=== PATIENT | male | born 1990 | race Caucasian/White ===

== ENCOUNTER → 2018-12-26 | Outpatient (CLI) | payer BC ==
--- NOTE | 2018-12-26 14:50 | CT ---
EXAMINATION TYPE: CT sinus wo con DATE OF EXAM: 12/26/2018 COMPARISON: NONE HISTORY: Pt had MRSA infection in nose September 2017. C/o scabbing, burning, congestion & pain and state s there is a hole in the septum. Chronic sinusitis and septal perforation or order. CT DLP: 581.40 mGycm. Automated Exposure Control for Dose Reduction was Utilized. TECHNIQUE: CT scan of the sinuses is performed without contrast, axial images are obtained, coronal r eformatted images are also reviewed. FINDINGS: There is mild to moderate lobulated mucosal thickening about the inferior aspect of both ma xillary sinuses. Remainder paranasal sinuses are clear without suspicious opacification or air-fluid levels. There is mucosal thickening at maxillary antral level bilaterally causing narrowing on the ri ght coronal image 17 and occlusion on the left coronal image 18. Visualized portion of mastoid air cells show no abnormal opacification. The globes are intact bilate rally. IMPRESSION: Chronic maxillary sinus disease bilaterally. No acute sinusitis.
== END | disposition home or self-care (01) ==
LOC: RADCTMAIN 14:14
PROVIDERS: ATTEND Otolaryngology
DX: J32.0 Chronic maxillary sinusitis (principal); J34.89 Other specified disorders of nose and nasal sinuses
CPT/HCPCS: 70486

== ENCOUNTER 2019-08-16 00:54 | Emergency (ER) | payer BC, OTHER ==
[2019-08-16 01:14] VITALS: BP 131/107; PULSE 96; RESP 16; TEMP 97.6
[2019-08-16] MEDS ORDERED: AMOXIC-POT CLAV 875-125MG 1 EACH TAB PO STA (01:47)
[2019-08-16] MEDS ORDERED: AMPICILLIN-SULBACTAM 3 GM VIAL IM STA (01:47)
[2019-08-16] MEDS ORDERED: AMOXIC-POT CLAV 875MG STARTER 2 EACH TABLET PO STA (01:47)
--- NOTE | 2019-08-16 01:49 | ED ---
Animal Bite HPI - General Chief Complaint: Animal Bite Stated Complaint: Hand Swelling/Redness Time Seen by Provider: 08/16/19 01:17 Source: patient, RN notes reviewed, old records reviewed Mode of arrival: ambulatory Limitations: no limitations - History of Present Illness Initial Comments: This is a 29-year-old male present with dogbite of right extremity. Symptoms happened 2 days ago, no prior evaluations. Minimal swelling of that right extremity currently. Patient refusing hospital admission effusing ambulatory, patient states he does have significant amount of things to do heel return if symptoms worsen. Patient has no fever but some swelling locally to the area of the puncture wound. Puncture wound appears to be around his index finger. No other injuries noted. No lymphadenopathy in the upper arm and no streaking up the arm MD Complaint: animal bite (Dog) -: days(s) (2) Left: Hand Animal: dog Description: household pet Mechanism: bite Pain Description: sharp Severity scale (1-10): 3 Associated Symptoms: erythema - Related Data Previous Rx's Medication Instructions Recorded Amoxic-Pot Clav 875-125Mg 1 tab PO Q12HR #20 tablet 08/16/19 [Augmentin 875-125] Allergies Allergy/AdvReac Type Severity Reaction Status Date / Time No Known Allergies Allergy Verified 08/16/19 01:14 Review of Systems ROS Statement: Those systems with pertinent positive or pertinent negative responses have been documented in the HPI. ROS Other: All systems not noted in ROS Statement are negative. Past Medical History Past Medical History: Hypertension History of Any Multi-Drug Resistant Organisms: MRSA Date of last positivie culture/infection: 2017 MDRO Source:: nose Past Surgical History: No Surgical Hx Reported Past Psychological History: No Psychological Hx Reported Smoking Status: Current every day smoker Past Alcohol Use History: None Reported Past Drug Use History: None Reported General Exam - General Exam Comments Initial Comments: Right hand does have dog bite, puncture wounds to index finger area with minimal swelling and erythema Limitations: no limitations General appearance: alert, in no apparent distress Head exam: Present: atraumatic, normocephalic, normal inspection Eye exam: Present: normal appearance, PERRL, EOMI. Absent: scleral icterus, conjunctival injection, periorbital swelling ENT exam: Present: normal exam, mucous membranes moist Neck exam: Present: normal inspection. Absent: tenderness, meningismus, lymphadenopathy Respiratory exam: Present: normal lung sounds bilaterally. Absent: respiratory distress, wheezes, rales, rhonchi, stridor Cardiovascular Exam: Present: regular rate, normal rhythm, normal heart sounds. Absent: systolic murmur, diastolic murmur, rubs, gallop, clicks GI/Abdominal exam: Present: soft, normal bowel sounds. Absent: distended, tenderness, guarding, rebound, rigid Extremities exam: Present: normal inspection, full ROM, normal capillary refill. Absent: tenderness, pedal edema, joint swelling, calf tenderness Back exam: Present: normal inspection Neurological exam: Present: alert, oriented X3, CN II-XII intact Psychiatric exam: Present: normal affect, normal mood Skin exam: Present: warm, dry, intact, normal color. Absent: rash Course Vital Signs 08/16/19 01:09 Temperature 97.6 F Pulse Rate 96 Respiratory 16 Rate Blood Pressure 131/107 O2 Sat by Pulse 94 L Oximetry Medical Decision Making - Medical Decision Making 29 male to be discharged home on antibiotics, refusing admission. Patient's in no acute distress is no fever. No swelling of the streaking up the arm. Patient returns to ER if symptoms worsen, again at this time is refusing admission Disposition Clinical Impression: Bite by animal, Dog bite Disposition: HOME SELF-CARE Condition: Good Instructions (If sedation given, give patient instructions): Animal Bite (ED) Prescriptions: Amoxic-Pot Clav 875-125Mg [Augmentin 875-125] 1 tab PO Q12HR #20 tablet Is patient prescribed a controlled substance at d/c from ED?: No Referrals: None,Stated [Primary Care Provider] - 1-2 days
== END 2019-08-16 02:17 | disposition home or self-care (01) ==
LOC: EC 00:54
DX: S61.230A Puncture wound without foreign body of right index finger without damage to nail, initial encounter (principal); I10 Essential (primary) hypertension; F17.200 Nicotine dependence, unspecified, uncomplicated; W54.0XXA Bitten by dog, initial encounter
CPT/HCPCS: 99283

== ENCOUNTER 2021-10-27 11:07 | Emergency (ER) | payer OTHER ==
[2021-10-27 11:31] VITALS: BP 164/129; PULSE 121; RESP 20; TEMP 98
[2021-10-27 12:22] LABS: Anisocytosis Slight; Basophils # (A) 0.1 k/uL (0-0.2); Basophils % (A) 1 %; Eosinophils # (A) 0.1 k/uL (0-0.7); Eosinophils % (A) 2 %; HCT 49.1 % (39.0-53.0); HGB 14.8 gm/dL (13.0-17.5); Hypochromasia Marked; Lymphocytes # (A) 1.6 k/uL (1.0-4.8); Lymphocytes % (A) 27 %; MCHC 30.2 g/dL (31.0-37.0); MCV 76.2 fL (80.0-100.0); Mean Platelet Volume 8.9; Microcytosis Moderate; Monocytes # (A) 0.3 k/uL (0-1.0); Monocytes % (A) 6 %; Neutrophils # (A) 3.7 k/uL (1.3-7.7); Neutrophils % (A) 62 %; Platelet Count 266 k/uL (150-450); RBC 6.44 m/uL (4.30-5.90); RDW 18.8 % (11.5-15.5)
[2021-10-27 12:39] LABS: ALT 124 U/L (4-49); AST 319 U/L (17-59); African American GFR (CKD) >90 (>60 ml/min/1.73 sqM); Albumin 4.9 g/dL (3.5-5.0); Alkaline Phosphatase 133 U/L (38-126); Anion Gap 16 mmol/L; Blood Urea Nitrogen 2 mg/dL (9-20); Calcium 9.8 mg/dL (8.4-10.2); Carbon Dioxide 25 mmol/L (22-30); Chloride 102 mmol/L (98-107); Glucose 118 mg/dL (74-99); Non-African American GFR(CKD) >90 (>60 ml/min/1.73 sqM); Potassium 3.1 mmol/L (3.5-5.1); Sodium 143 mmol/L (137-145); Total Bilirubin 0.7 mg/dL (0.2-1.3); Total Protein 9.3 g/dL (6.3-8.2)
== END 2021-10-27 14:43 | disposition left against medical advice (07) ==
LOC: EC 11:07
DX: Z53.21 Procedure and treatment not carried out due to patient leaving prior to being seen by health care provider (principal); I10 Essential (primary) hypertension
CPT/HCPCS: 36415; 80053; 85025; 99499

== ENCOUNTER 2021-11-07 11:28 | Emergency (ER) | payer OTHER ==
[2021-11-07 11:42] VITALS: TEMP 98.1
[2021-11-07 12:39] VITALS: RESP 16
[2021-11-07] MEDS ORDERED: SODIUM CHLORIDE 0.9% 1,000 ML IV STA (12:43)
[2021-11-07 13:25] LABS: ALT 114 U/L (4-49); AST 196 U/L (17-59); African American GFR (CKD) >90 (>60 ml/min/1.73 sqM); Albumin 4.6 g/dL (3.5-5.0); Alkaline Phosphatase 154 U/L (38-126); Anion Gap 16 mmol/L; Blood Urea Nitrogen 9 mg/dL (9-20); Calcium 9.2 mg/dL (8.4-10.2); Carbon Dioxide 21 mmol/L (22-30); Chloride 91 mmol/L (98-107); Glucose 94 mg/dL (74-99); Magnesium 1.9 mg/dL (1.6-2.3); Non-African American GFR(CKD) >90 (>60 ml/min/1.73 sqM); Potassium 3.9 mmol/L (3.5-5.1); Sodium 128 mmol/L (137-145); Total Protein 8.5 g/dL (6.3-8.2)
[2021-11-07 13:28] LABS: Anisocytosis Slight; Basophils % (A) 0 %; Eosinophils % (A) 0 %; HCT 42.8 % (39.0-53.0); HGB 13.4 gm/dL (13.0-17.5); Hypochromasia Moderate; Lymphocytes # (A) 0.9 k/uL (1.0-4.8); Lymphocytes % (A) 18 %; MCH 23.3 pg (25.0-35.0); MCHC 31.3 g/dL (31.0-37.0); MCV 74.5 fL (80.0-100.0); Mean Platelet Volume 8.2; Microcytosis Moderate; Monocytes # (A) 0.3 k/uL (0-1.0); Monocytes % (A) 6 %; Neutrophils # (A) 3.7 k/uL (1.3-7.7); Neutrophils % (A) 72 %; Platelet Count 186 k/uL (150-450); RBC 5.74 m/uL (4.30-5.90); RDW 18.2 % (11.5-15.5); WBC 5.1 k/uL (3.8-10.6)
--- NOTE | 2021-11-07 13:30 | ED ---
General Adult HPI - General Chief complaint: Dizziness Stated complaint: Syncope, Light headed, Diziness Time Seen by Provider: 11/07/21 12:26 Source: patient, RN notes reviewed Mode of arrival: ambulatory Limitations: no limitations - History of Present Illness Initial comments: 31-year-old male presents emergency Department with chief complaint of near syncope. Patient states recently was placed on lisinopril 10 mg for hypertension. Patient did have recent lab work which showed some elevated liver enzymes. He does admit that over a year ago he had a GI bleed with a hemoglobin of less than 4. Patient states today he wasn't feeling well he went this standup and nearly passed out. Patient states that he was sick all day Saturday with vomiting unable to keep anything down. He is able to keep something down yesterday and this morning. He states that this current moment he has no complaints denies any chest pain or palpitations. No focal weakness. - Related Data Home Medications Medication Instructions Recorded Confirmed Esomeprazole Magnesium [NexIUM 20 mg PO DAILY 11/07/21 11/07/21 24Hr] Zolpidem Tartrate [Ambien Cr] 12.5 mg PO HS 11/07/21 11/07/21 lisinopriL [Zestril] 10 mg PO DAILY 11/07/21 11/07/21 Allergies Allergy/AdvReac Type Severity Reaction Status Date / Time No Known Allergies Allergy Verified 11/07/21 13:39 Review of Systems ROS Statement: Those systems with pertinent positive or pertinent negative responses have been documented in the HPI. ROS Other: All systems not noted in ROS Statement are negative. Past Medical History Past Medical History: Hypertension History of Any Multi-Drug Resistant Organisms: MRSA Date of last positivie culture/infection: 2017 MDRO Source:: nose Past Surgical History: No Surgical Hx Reported Additional Past Surgical History / Comment(s): Ulcer coils Past Psychological History: No Psychological Hx Reported Smoking Status: Never smoker Past Alcohol Use History: None Reported Past Drug Use History: None Reported General Exam Limitations: no limitations General appearance: alert, in no apparent distress Head exam: Present: atraumatic, normocephalic, normal inspection Eye exam: Present: normal appearance, PERRL, EOMI. Absent: scleral icterus, conjunctival injection, periorbital swelling ENT exam: Present: normal exam, normal oropharynx, mucous membranes moist Neck exam: Present: normal inspection, full ROM. Absent: tenderness, meningismus, lymphadenopathy Respiratory exam: Present: normal lung sounds bilaterally. Absent: respiratory distress, wheezes, rales, rhonchi, stridor Cardiovascular Exam: Present: regular rate, normal rhythm, normal heart sounds. Absent: systolic murmur, diastolic murmur, rubs, gallop, clicks GI/Abdominal exam: Present: soft, normal bowel sounds. Absent: distended, tenderness, guarding, rebound, rigid Neurological exam: Present: alert, oriented X3, CN II-XII intact Skin exam: Present: warm, dry, intact, normal color. Absent: rash Course Vital Signs 11/07/21 11/07/21 11/07/21 11:36 12:38 12:39 Temperature 98.1 F Pulse Rate 98 Pulse Rate [ 87 85 Pulse Oximetery ] Respiratory 18 16 16 Rate Blood Pressure 126/91 Blood Pressure 114/85 [Left Arm Sitting] Blood Pressure [Left Arm Standing] Blood Pressure 114/81 [Left Arm Supine] O2 Sat by Pulse 100 99 100 Oximetry 11/07/21 12:40 Temperature Pulse Rate Pulse Rate [ 108 H Pulse Oximetery ] Respiratory 16 Rate Blood Pressure Blood Pressure [Left Arm Sitting] Blood Pressure 117/91 [Left Arm Standing] Blood Pressure [Left Arm Supine] O2 Sat by Pulse 97 Oximetry Medical Decision Making - Medical Decision Making 31-year-old presented for syncope/initially gave the patient did have episode here which included vasovagal related to IV start. Patient lab reveal mild hyponatremia, dehydration. Patient was given 2 L of fluids is feeling greatly improved. I do feel this may related to his recent GI illness. Patient will follow-up PCP for recheck have close blood pressure monitoring. - Lab Data Result diagrams: 11/07/21 12:55 11/07/21 12:55 Lab Results 11/07/21 11/07/21 11/07/21 Range/Units 12:55 12:55 12:55 WBC 5.1 (3.8-10.6) k/uL RBC 5.74 (4.30-5.90) m/uL Hgb 13.4 (13.0-17.5) gm/dL Hct 42.8 (39.0-53.0) % MCV 74.5 L (80.0-100.0) fL MCH 23.3 L (25.0-35.0) pg MCHC 31.3 (31.0-37.0) g/dL RDW 18.2 H (11.5-15.5) % Plt Count 186 (150-450) k/uL MPV 8.2 Neutrophils % 72 % Lymphocytes % 18 % Monocytes % 6 % Eosinophils % 0 % Basophils % 0 % Neutrophils # 3.7 (1.3-7.7) k/uL Lymphocytes # 0.9 L (1.0-4.8) k/uL Monocytes # 0.3 (0-1.0) k/uL Eosinophils # 0.0 (0-0.7) k/uL Basophils # 0.0 (0-0.2) k/uL Hypochromasia Moderate Anisocytosis Slight Microcytosis Moderate Sodium 128 L (137-145) mmol/L Potassium 3.9 (3.5-5.1) mmol/L Chloride 91 L (98-107) mmol/L Carbon Dioxide 21 L (22-30) mmol/L Anion Gap 16 mmol/L BUN 9 (9-20) mg/dL Creatinine 0.74 (0.66-1.25) mg/dL Est GFR (CKD-EPI)AfAm >90 (>60 ml/min/1.73 sqM) Est GFR (CKD-EPI)NonAf >90 (>60 ml/min/1.73 sqM) Glucose 94 (74-99) mg/dL Calcium 9.2 (8.4-10.2) mg/dL Magnesium 1.9 (1.6-2.3) mg/dL Total Bilirubin 1.0 (0.2-1.3) mg/dL AST 196 H (17-59) U/L ALT 114 H (4-49) U/L Alkaline Phosphatase 154 H (38-126) U/L Troponin I <0.012 (0.000-0.034) ng/mL Total Protein 8.5 H (6.3-8.2) g/dL Albumin 4.6 (3.5-5.0) g/dL Disposition Clinical Impression: Vasovagal syncope Disposition: HOME SELF-CARE Condition: Stable Instructions (If sedation given, give patient instructions): Syncope (ED) Additional Instructions: Please return to the Emergency Department if symptoms worsen or any other concerns. Is patient prescribed a controlled substance at d/c from ED?: No Referrals: Tony Kong DO [Primary Care Provider] - 1-2 days Time of Disposition: 14:05
[2021-11-07 14:21] VITALS: BP 133/88; PULSE 93
== END 2021-11-07 14:21 | disposition home or self-care (01) ==
LOC: EC 11:28
DX: R55 Syncope and collapse (principal); I10 Essential (primary) hypertension
CPT/HCPCS: 36415; 80053; 83735; 84484; 85025; 93005; 96360; 99285

== ENCOUNTER 2024-02-26 06:11 | Emergency (ER) | payer OTHER ==
[2024-02-26 06:16] VITALS: RESP 18
--- NOTE | 2024-02-26 06:35 | ED ---
Eye Problem HPI - General Chief complaint: Eye Problems Stated complaint: Eye Issues Time Seen by Provider: 02/26/24 06:22 Source: patient, RN notes reviewed Mode of arrival: ambulatory Limitations: no limitations - History of Present Illness Initial comments: 33-year-old male presents emerged part complaint of right eye irritation. He states he was helping his friend work on a pole barn yesterday and recently got into his right eye. Patient states there is irritation and blurred vision he normally wears contacts otherwise. Patient states he is unsure when his last tetanus was. Denies any drainage there is mild irritation, redness noted. - Related Data Home Medications Medication Instructions Recorded Confirmed Esomeprazole Magnesium [NexIUM 20 mg PO DAILY 11/07/21 11/07/21 24Hr] Zolpidem Tartrate [Ambien Cr] 12.5 mg PO HS 11/07/21 11/07/21 lisinopriL [Zestril] 10 mg PO DAILY 11/07/21 11/07/21 Allergies Allergy/AdvReac Type Severity Reaction Status Date / Time No Known Allergies Allergy Verified 02/26/24 06:16 Review of Systems ROS Statement: Those systems with pertinent positive or pertinent negative responses have been documented in the HPI. ROS Other: All systems not noted in ROS Statement are negative. Past Medical History Past Medical History: Hypertension History of Any Multi-Drug Resistant Organisms: MRSA Date of last positivie culture/infection: 2017 MDRO Source:: nose Past Surgical History: No Surgical Hx Reported Additional Past Surgical History / Comment(s): Ulcer coils Past Psychological History: No Psychological Hx Reported Smoking Status: Never smoker Past Alcohol Use History: None Reported Past Drug Use History: None Reported General Exam Limitations: no limitations General appearance: alert, in no apparent distress Head exam: Present: atraumatic, normocephalic, normal inspection Eye exam: Present: PERRL, EOMI, conjunctival injection (Right), other (Patient had relief with proparacaine eyedrops, fluorescein uptake with Lam lamp noted 3 o'clock position of the right eye there is no associated foreign body). Absent: normal appearance, scleral icterus, periorbital swelling ENT exam: Present: normal exam, normal oropharynx, mucous membranes moist Neck exam: Present: normal inspection, full ROM. Absent: tenderness, meningismus, lymphadenopathy Respiratory exam: Present: normal lung sounds bilaterally. Absent: respiratory distress, wheezes, rales, rhonchi, stridor Cardiovascular Exam: Present: regular rate, normal rhythm, normal heart sounds. Absent: systolic murmur, diastolic murmur, rubs, gallop, clicks Course Vital Signs 02/26/24 06:14 Temperature 98 F Pulse Rate 106 H Respiratory 18 Rate Blood Pressure 133/96 O2 Sat by Pulse 97 Oximetry Medical Decision Making - Medical Decision Making Was pt. sent in by a medical professional or institution ([facility], [employer], urgent care, hospital, or fdc...) When possible be specific @ -No Did you speak to anyone other than the patient for history (EMS, parent, family, police, friend...)? What history was obtained from this source @ -No Did you review nursing and triage notes (agree or disagree)? Why? @ -I reviewed and agree with nursing and triage notes Were old charts reviewed (outside hosp., previous admission, EMS record, old EKG, old radiological studies, urgent care reports/EKG's, fdc records)? Report findings @ -No old charts were reviewed Differential Diagnosis (chest pain, altered mental status, abdominal pain women, abdominal pain men, vaginal bleeding, weakness, fever, dyspnea, syncope, headache, dizziness, GI bleed, back pain, seizure, CVA, palpatations, mental health, musculoskeletal)? @ -Corneal foreign body, corneal abrasion, conjunctivitis EKG interpreted by me (3pts min.). @ -None X-rays interpreted by me (1pt min.). @ -None done CT interpreted by me (1pt min.). @ -None done U/S interpreted by me (1pt. min.). @ -None done What testing was considered but not performed or refused? (CT, X-rays, U/S, labs)? Why? @ -None What meds were considered but not given or refused? Why? @ -None Did you discuss the management of the patient with other professionals (professionals i.e. [facility], [employer], lab, RT, psych nurse, renal social worker, vice president lending, teacher, school services officer, disability case manager)? Give summary @ -No Was smoking cessation discussed for >3mins.? @ -No Was critical care preformed (if so, how long)? @ -No Were there social determinants of health that impacted care today? How? (Homelessness, low income, unemployed, alcoholism, drug addiction, transportation, low edu. Level, literacy, decrease access to med. care, group home, rehab)? @ -No Was there de-escalation of care discussed even if they declined (Discuss DNR or withdrawal of care, Hospice)? DNR status @ -No What co-morbidities impacted this encounter? (DM, HTN, Smoking, COPD, CAD, Cancer, CVA, ARF, Chemo, Hep., AIDS, mental health diagnosis, sleep apnea, morbid obesity)? @ -None Was patient admitted / discharged? Hospital course, mention meds given and route, prescriptions, significant lab abnormalities, going to OR and other pertinent info. @ -Did charge patient has corneal abrasion without corneal foreign body at this time. 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 @ -No Drug Therapy requiring intensive monitoring for toxicity (Heparin, Nitro, Insulin, Cardizem)? @ -No Were any procedures done? @ -No Diagnosis/symptom? @ -Corneal abrasion Acute, or Chronic, or Acute on Chronic? @ -Acute Uncomplicated (without systemic symptoms) or Complicated (systemic symptoms)? @ -Uncomplicated Side effects of treatment? @ -No Exacerbation, Progression, or Severe Exacerbation? @ -No Poses a threat to life or bodily function? How? (Chest pain, [place], [place], pneumonia, PE, COPD, DKA, ARF, appy, cholecystitis, CVA, Diverticulitis, Homicidal, Suicidal, threat to staff... and all critical care pts) @ -No Disposition Clinical Impression: Corneal abrasion Disposition: HOME SELF-CARE Condition: Stable Instructions (If sedation given, give patient instructions): Corneal Abrasion (ED) Additional Instructions: Please return to the Emergency Department if symptoms worsen or any other concerns. Use eyedrops 1 drop 4 times daily for 5 days Is patient prescribed a controlled substance at d/c from ED?: No Referrals: Ada Ware PAC [Primary Care Provider] - 1-2 days Time of Disposition: 06:35
[2024-02-26] MEDS: MOXIFLOXACIN HCL 0.5% DROPS 3 ML BTL RIGHT EYE ONE (07:10)
[2024-02-26] MEDS: PROPARACAINE 0.5% OPHTH DROPS 15 ML BTL RIGHT EYE STA (07:11)
[2024-02-26] MEDS: FLUORESCEIN STRIPS 1 MG STRIP RIGHT EYE ONE (07:11)
[2024-02-26] MEDS: DIPH,PERTUS(ACELL)TETVAC-LF 0.5 ML VIAL IM ONE (07:12)
[2024-02-26 07:16] VITALS: BP 133/81; PULSE 85; TEMP 97.9
== END 2024-02-26 07:16 | disposition home or self-care (01) ==
LOC: EC 06:11
DX: S05.01XA Injury of conjunctiva and corneal abrasion without foreign body, right eye, initial encounter (principal); W22.8XXA Striking against or struck by other objects, initial encounter
CPT/HCPCS: 99283

== ENCOUNTER 2024-04-25 15:28 | Emergency (ER) | payer OTHER ==
[2024-04-25 15:40] VITALS: RESP 18; TEMP 97.5
--- NOTE | 2024-04-25 16:04 | ED ---
General Adult HPI - General Chief complaint: GI Bleed Stated complaint: blood in vomit Time Seen by Provider: 04/25/24 15:41 Source: patient, RN notes reviewed, old records reviewed Mode of arrival: ambulatory Limitations: no limitations - History of Present Illness Initial comments: 34-year-old male presenting for evaluation of hematemesis. Patient had 1 episode of nausea vomiting earlier today which was bright red blood. He has a previous history of duodenal ulcer with profound anemia requiring intervention. This was years ago. He states he is on Nexium daily. He does admit to alcohol consumption daily. Denies current NSAID use. States he feels fine right now, no abdominal pain. No nausea. Not lightheaded. Reports normal stool, no me star - Related Data Home Medications Medication Instructions Recorded Confirmed Esomeprazole Magnesium [NexIUM 20 mg PO DAILY 11/07/21 11/07/21 24Hr] Zolpidem Tartrate [Ambien Cr] 12.5 mg PO HS 11/07/21 11/07/21 lisinopriL [Zestril] 10 mg PO DAILY 11/07/21 11/07/21 Allergies Allergy/AdvReac Type Severity Reaction Status Date / Time No Known Allergies Allergy Verified 02/26/24 06:16 Review of Systems ROS Statement: Those systems with pertinent positive or pertinent negative responses have been documented in the HPI. ROS Other: All systems not noted in ROS Statement are negative. Past Medical History Past Medical History: Hypertension Additional Past Medical History / Comment(s): bleeding ulcer in small intestine. History of Any Multi-Drug Resistant Organisms: MRSA Date of last positivie culture/infection: 2017 MDRO Source:: nose Past Surgical History: No Surgical Hx Reported Additional Past Surgical History / Comment(s): Ulcer coils Past Psychological History: No Psychological Hx Reported Smoking Status: Never smoker Past Alcohol Use History: Occasional Past Drug Use History: None Reported General Exam Limitations: no limitations General appearance: alert, in no apparent distress Head exam: Present: atraumatic, normocephalic Eye exam: Present: normal appearance, PERRL ENT exam: Present: normal exam Neck exam: Present: normal inspection. Absent: tenderness, meningismus Respiratory exam: Present: normal lung sounds bilaterally. Absent: respiratory distress, wheezes Cardiovascular Exam: Present: regular rate, normal rhythm GI/Abdominal exam: Present: soft. Absent: distended, tenderness, guarding Neurological exam: Present: alert, oriented X3, CN II-XII intact. Absent: motor sensory deficit Psychiatric exam: Present: anxious Skin exam: Present: warm, dry, intact, normal color. Absent: pallor Course Vital Signs 04/25/24 04/25/24 04/25/24 15:36 16:00 16:21 Temperature 97.5 F L Pulse Rate 98 105 H 101 H Respiratory 18 18 Rate Blood Pressure 187/139 156/117 O2 Sat by Pulse 100 96 Oximetry Medical Decision Making - Medical Decision Making Was pt. sent in by a medical professional or institution (, [facility], MARINE EQUIPMENT SALES ENGINEER, urgent care, hospital, or residential...) When possible be specific @ -No Did you speak to anyone other than the patient for history (EMS, parent, family, police, friend...)? What history was obtained from this source @ -No Did you review nursing and triage notes (agree or disagree)? Why? @ -I reviewed and agree with nursing and triage notes Were old charts reviewed (outside hosp., previous admission, EMS record, old EKG, old radiological studies, urgent care reports/EKG's, residential records)? Report findings @ -No old charts were reviewed Differential GI Bleed: Esophageal varices, aortoenteric fistula, Faye-Ramires, gastritis, peptic ulcer disease, diverticulosis, inflammatory bowel disease, hemorrhoids, fissure, colitis, malignancy, Meckel's diverticulum, this is not meant to be an all- inclusive list. EKG interpreted by me (3pts min.). @ -As above X-rays interpreted by me (1pt min.). @ -None done CT interpreted by me (1pt min.). @ -None done U/S interpreted by me (1pt. min.). @ -None done What testing was considered but not performed or refused? (CT, X-rays, U/S, labs)? Why? @ -None What meds were considered but not given or refused? Why? @ -None Did you discuss the management of the patient with other professionals (professionals i.e. [facility] Enamorado, MARINE EQUIPMENT SALES ENGINEER, lab, RT, psych nurse, child protective services social worker, category development analyst, teacher, navy senior officer, rn field case manager)? Give summary @ -No Was smoking cessation discussed for >3mins.? @ -No Was critical care preformed (if so, how long)? @ -No Were there social determinants of health that impacted care today? How? ( Homelessness, low income, unemployed, alcoholism, drug addiction, transportation, low edu. Level, literacy, decrease access to med. care, fdc, rehab)? @ -No Was there de-escalation of care discussed even if they declined (Discuss DNR or withdrawal of care, Hospice)? DNR status @ -No What co-morbidities impacted this encounter? (DM, HTN, Smoking, COPD, CAD, Cancer, CVA, ARF, Chemo, Hep., AIDS, mental health diagnosis, sleep apnea, morbid obesity)? @ -[Alcohol, previous history of duodenal ulcer Was patient admitted / discharged? Hospital course, mention meds given and route, prescriptions, significant lab abnormalities, going to OR and other pertinent info. @ -34-year-old male with an episode of bright red blood with vomiting. Patient states he feels fine at this time and is requesting hemoglobin check. Hemoglobin is 15. Is informed that the initial hemoglobin in the setting of GI bleed can be normal and this does not predict whether or not he is still bleeding. Patient wants to go home and does not want any further testing at this time but does agree to return if he should develop dark stools, lightheadedness, further vomiting or hematemesis. He is instructed to abstain f rom alcohol. He is informed of the risks and wishes to be discharged. Undiagnosed new problem with uncertain prognosis? @ -No Drug Therapy requiring intensive monitoring for toxicity (Heparin, Nitro, Insulin, Cardizem)? @ -No Were any procedures done? @ -No Diagnosis/symptom? @Hematemesis Acute, or Chronic, or Acute on Chronic? @ -Acute Uncomplicated (without systemic symptoms) or Complicated (systemic symptoms)? @ -Default Side effects of treatment? @ -No Exacerbation, Progression, or Severe Exacerbation? @ -No Poses a threat to life or bodily function? How? (Chest pain, [place], [place], pneumonia, PE, COPD, DKA, ARF, appy, cholecystitis, CVA, Diverticulitis, Homicidal, Suicidal, threat to staff... and all critical care pts) @ -Yes, gastrointestinal hemorrhage, hemorrhagic shock - Lab Data Result diagrams: 04/25/24 16:13 04/25/24 16:13 Lab Results 04/25/24 04/25/24 04/25/24 Range/Units 16:13 16:13 16:13 WBC 4.5 (3.8-10.6) k/uL RBC 5.31 (4.30-5.90) m/uL Hgb 15.0 (13.0-17.5) gm/dL Hct 47.1 (39.0-53.0) % MCV 88.7 (80.0-100.0) fL MCH 28.2 (25.0-35.0) pg MCHC 31.8 (31.0-37.0) g/dL RDW 13.2 (11.5-15.5) % Plt Count 155 (150-450) k/uL MPV 8.7 Neutrophils % 64 % Lymphocytes % 25 % Monocytes % 7 % Eosinophils % 0 % Basophils % 1 % Neutrophils # 2.9 (1.3-7.7) k/uL Lymphocytes # 1.1 (1.0-4.8) k/uL Monocytes # 0.3 (0-1.0) k/uL Eosinophils # 0.0 (0-0.7) k/uL Basophils # 0.0 (0-0.2) k/uL PT 10.2 (10.0-12.5) sec INR 0.9 (<1.2) APTT 25.4 (22.0-30.0) sec Sodium 131 L (137-145) mmol/L Potassium 4.3 (3.5-5.1) mmol/L Chloride 93 L (98-107) mmol/L Carbon Dioxide 24 (22-30) mmol/L Anion Gap 14 mmol/L BUN <2 L (9-20) mg/dL Creatinine 0.54 L (0.66-1.25) mg/dL Est GFR (CKD-EPI)AfAm >90 (>60 ml/min/1.73 sqM) Est GFR (CKD-EPI)NonAf >90 (>60 ml/min/1.73 sqM) Glucose 90 (74-99) mg/dL Calcium 9.1 (8.4-10.2) mg/dL Magnesium 1.6 (1.6-2.3) mg/dL Total Bilirubin 0.5 (0.2-1.3) mg/dL AST 435 H (17-59) U/L ALT 491 H (4-49) U/L Alkaline Phosphatase 90 (38-126) U/L Total Protein 8.7 H (6.3-8.2) g/dL Albumin 4.7 (3.5-5.0) g/dL Disposition Clinical Impression: Upper gastrointestinal hemorrhage Disposition: HOME SELF-CARE Condition: Fair Instructions (If sedation given, give patient instructions): Gastrointestinal Bleeding (ED) Additional Instructions: Please return to the emergency department if you develop any further vomiting with or without blood, dark tarry stools, lightheadedness, weakness, chest pain or dyspnea. Is patient prescribed a controlled substance at d/c from ED?: No Referrals: Ada Ware PAC [REFERRING] - 1-2 days Tami Signh MD [STAFF PHYSICIAN] - 1-2 days Time of Disposition: 16:55
[2024-04-25] MEDS: PANTOPRAZOLE 40 MG/10 ML VIAL IVP STA (16:14)
[2024-04-25 16:27] LABS: Basophils % (A) 1 %; Eosinophils % (A) 0 %; HCT 47.1 % (39.0-53.0); Lymphocytes # (A) 1.1 k/uL (1.0-4.8); Lymphocytes % (A) 25 %; MCH 28.2 pg (25.0-35.0); MCHC 31.8 g/dL (31.0-37.0); MCV 88.7 fL (80.0-100.0); Mean Platelet Volume 8.7; Monocytes # (A) 0.3 k/uL (0-1.0); Monocytes % (A) 7 %; Neutrophils # (A) 2.9 k/uL (1.3-7.7); Neutrophils % (A) 64 %; Platelet Count 155 k/uL (150-450); RBC 5.31 m/uL (4.30-5.90); RDW 13.2 % (11.5-15.5); WBC 4.5 k/uL (3.8-10.6)
[2024-04-25 16:35] LABS: INR 0.9 (<1.2); Partial Thromboplastin Time 25.4 sec (22.0-30.0); Prothrombin Time 10.2 sec (10.0-12.5)
[2024-04-25 16:43] LABS: ALT 491 U/L (4-49); AST 435 U/L (17-59); African American GFR (CKD) >90 (>60 ml/min/1.73 sqM); Albumin 4.7 g/dL (3.5-5.0); Alkaline Phosphatase 90 U/L (38-126); Anion Gap 14 mmol/L; Blood Urea Nitrogen <2 mg/dL (9-20); Calcium 9.1 mg/dL (8.4-10.2); Carbon Dioxide 24 mmol/L (22-30); Chloride 93 mmol/L (98-107); Glucose 90 mg/dL (74-99); Magnesium 1.6 mg/dL (1.6-2.3); Non-African American GFR(CKD) >90 (>60 ml/min/1.73 sqM); Potassium 4.3 mmol/L (3.5-5.1); Sodium 131 mmol/L (137-145); Total Bilirubin 0.5 mg/dL (0.2-1.3); Total Protein 8.7 g/dL (6.3-8.2)
[2024-04-25 17:49] VITALS: BP 145/107; PULSE 99
== END 2024-04-25 17:54 | disposition home or self-care (01) ==
LOC: EC 15:28 → SUPCPDRO 15:28 → EC 17:54
DX: K92.2 Gastrointestinal hemorrhage, unspecified (principal)
CPT/HCPCS: 36415; 80053; 83735; 85025; 85610; 85730; 96374; 99284

== ENCOUNTER 2024-11-16 08:49 | Emergency (ER) | payer OTHER ==
[2024-11-16 09:02] VITALS: RESP 18
[2024-11-16] MEDS: MECLIZINE 12.5 MG TAB PO STA (09:17)
[2024-11-16] MEDS: ONDANSETRON 4 MG/2 ML VIAL IVP STA (09:19)
[2024-11-16] MEDS: SODIUM CHLORIDE 0.9% 1,000 ML IV STA (09:19)
[2024-11-16] MEDS: SODIUM CHLORIDE 0.9% 500 ML 500 ML IV STA (09:20)
--- NOTE | 2024-11-16 09:35 | ED ---
General Adult HPI - General Chief complaint: Shortness of Breath Stated complaint: Cardiac Issues Time Seen by Provider: 11/16/24 08:51 Source: patient, EMS, RN notes reviewed Mode of arrival: EMS Limitations: no limitations - History of Present Illness Initial comments: 34-year-old male presents emergency department chief complaint of dizziness, shortness of breath. Patient states that he has been having symptoms of the last several days. States his dizziness, lightheadedness is worse with movement. He states he stands up or turns quickly he becomes symptomatic. He denies any chest pain. He states he does feel short of breath and nauseated wh en the symptoms are present. Patient denies any reports of fever, night sweats. Patient does admit that he is HIV positive he is currently being switched medications as his current treatment was not effective he has been switched to injections. Patient denies any localized abdominal pain no dysuria no rectal bleeding. - Related Data Home Medications Medication Instructions Recorded Confirmed lisinopriL [Zestril] 10 mg PO DAILY 11/07/21 11/16/24 Azithromycin [Zithromax] 1,200 mg PO MO 11/16/24 11/16/24 Cetirizine HCl [Zyrtec] 10 mg PO DAILY 11/16/24 11/16/24 Clobetasol Propionate [Temovate 1 applic TOPICAL DAILY 11/16/24 11/16/24 0.05% Cream] Hydroxychloroquine Sulfate 200 mg PO DAILY 11/16/24 11/16/24 [Plaquenil] Ketoconazole 2% Shampoo [Nizoral] 1 applic TOPICAL DAILY 11/16/24 11/16/24 Lisdexamfetamine Dimesylate 60 mg PO DAILY 11/16/24 11/16/24 [Vyvanse] Omeprazole [PriLOSEC] 40 mg PO DAILY 11/16/24 11/16/24 Sulfamethox-Tmp 800-160Mg [Bactrim 1 tab PO DAILY 11/16/24 11/16/24 DS 800-160 mg] Triamcinolone 0.1% Cream [Kenalog 1 applic TOPICAL DAILY 11/16/24 11/16/24 0.1% Cream] Zolpidem Tartrate [Ambien] 10 mg PO HS 11/16/24 11/16/24 predniSONE 10 mg PO DAILY 11/16/24 11/16/24 Previous Rx's Medication Instructions Recorded Meclizine [Antivert] 25 mg PO TID PRN #15 tab 11/16/24 Nystatin 100,000 Unit/ml Susp 5 ml PO QID #200 ml 11/16/24 [Mycostatin Oral Susp] Allergies Allergy/AdvReac Type Severity Reaction Status Date / Time NSAIDS (Non-Steroidal AdvReac Rupturing Verified 11/16/24 10:58 Anti-Inflamma Ulcers Review of Systems ROS Statement: Those systems with pertinent positive or pertinent negative responses have been documented in the HPI. ROS Other: All systems not noted in ROS Statement are negative. Past Medical History Past Medical History: Hypertension Additional Past Medical History / Comment(s): bleeding ulcer in small intestine. HIV History of Any Multi-Drug Resistant Organisms: MRSA Date of last positivie culture/infection: 2017 MDRO Source:: nose Past Surgical History: No Surgical Hx Reported Additional Past Surgical History / Comment(s): Ulcer coils Past Psychological History: No Psychological Hx Reported Smoking Status: Never smoker Past Alcohol Use History: Occasional Past Drug Use History: None Reported General Exam Limitations: no limitations General appearance: alert, in no apparent distress Head exam: Present: atraumatic, normocephalic, normal inspection Eye exam: Present: normal appearance, PERRL, EOMI. Absent: scleral icterus, conjunctival injection, periorbital swelling ENT exam: Present: normal exam, normal oropharynx, mucous membranes moist Neck exam: Present: normal inspection, full ROM. Absent: tenderness, meningismus, lymphadenopathy Respiratory exam: Present: normal lung sounds bilaterally. Absent: respiratory distress, wheezes, rales, rhonchi, stridor Cardiovascular Exam: Present: normal rhythm, tachycardia, normal heart sounds. Absent: systolic murmur, diastolic murmur, rubs, gallop, clicks GI/Abdominal exam: Present: soft, normal bowel sounds. Absent: distended, tenderness, guarding, rebound, rigid Course Vital Signs 11/16/24 11/16/24 11/16/24 08:51 08:58 09:01 Temperature 99.2 F Pulse Rate 119 H 115 H Respiratory 18 20 18 Rate Blood Pressure 135/102 128/98 O2 Sat by Pulse 99 98 Oximetry 11/16/24 10:26 Temperature Pulse Rate 78 Respiratory 18 Rate Blood Pressure 130/98 O2 Sat by Pulse 96 Oximetry EKG Findings - EKG Comments: EKG Findings:: EKG performed at 9: 30 sinus tachycardia rate of 106 MD 120 QRS 102 QT/QTc 373/435 - EKG Results: EKG: interpreted by [place] Medical Decision Making - Medical Decision Making Was pt. sent in by a medical professional or institution (, [facility], SENIOR FIELD ENGINEER, urgent care, hospital, or long-term...) When possible be specific @ -No Did you speak to anyone other than the patient for history (EMS, parent, family, police, friend...)? What history was obtained from this source @ -No Did you review nursing and triage notes (agree or disagree)? Why? @ -I reviewed and agree with nursing and triage notes Were old charts reviewed (outside hosp., previous admission, EMS record, old EKG, old radiological studies, urgent care reports/EKG's, long-term records)? Report findings @ -No old charts were reviewed Differential Diagnosis (chest pain, altered mental status, abdominal pain women, abdominal pain men, vaginal bleeding, weakness, fever, dyspnea, syncope, headache, dizziness, GI bleed, back pain, seizure, CVA, palpatations, mental health, musculoskeletal)? @ -Differential Dizziness: Benign paroxysmal positional Vertigo, Meniere's disease, otitis media, acoustic neuroma, vertebrobasilar insufficiency, cerebellar stroke, encephalitis, hypovolemic, arrhythmia, coronary artery syndrome, anemia, this is not meant to be an all-inclusive list EKG interpreted by me (3pts min.). @ -As above X-rays interpreted by me (1pt min.). @ -Chest x-ray shows no acute cardiopulmonary process. CT interpreted by me (1pt min.). @ -None done U/S interpreted by me (1pt. min.). @ -None done What testing was considered but not performed or refused? (CT, X-rays, U/S, labs)? Why? @ -None What meds were considered but not given or refused? Why? @ -None Did you discuss the management of the patient with other professionals (professionals i.e. [facility] Enamorado, SENIOR FIELD ENGINEER, lab, RT, psych nurse, social worker delinquency prevention, minister assistant, teacher, aoc aadc operations staff officer, classification case manager)? Give summary @ -No Was smoking cessation discussed for >3mins.? @ -No Was critical care preformed (if so, how long)? @ -No Were there social determinants of health that impacted care today? How? (Homelessness, low income, unemployed, alcoholism, drug addiction, transportation, low edu. Level, literacy, decrease access to med. care, fdc, rehab)? @ -No Was there de-escalation of care discussed even if they declined (Discuss DNR or withdrawal of care, Hospice)? DNR status @ -No What co-morbidities impacted this encounter? (DM, HTN, Smoking, COPD, CAD, Cancer, CVA, ARF, Chemo, Hep., AIDS, mental health diagnosis, sleep apnea, morbid obesity)? @ - HIV Was patient admitted / discharged? Hospital course, mention meds given and route, prescriptions, significant lab abnormalities, going to OR and other pertinent info. @ -Discharged patient feels greatly proved after IV fluids, Antivert. Patient is currently asymptomatic. Patient does have some mild thrush but given nystatin. Patient will follow-up with his infectious disease specialist, PCP and return for as discussed. Undiagnosed new problem with uncertain prognosis? @ -No Drug Therapy requiring intensive monitoring for toxicity (Heparin, Nitro, Insulin, Cardizem)? @ -No Were any procedures done? @ -No Diagnosis/symptom? @ -vertigo thrush Acute, or Chronic, or Acute on Chronic? @ -Acute Uncomplicated (without systemic symptoms) or Complicated (systemic symptoms)? @ -complicated Side effects of treatment? @ -No Exacerbation, Progression, or Severe Exacerbation? @ -No Poses a threat to life or bodily function? How? (Chest pain, [place], [place], pneumonia, PE, COPD, DKA, ARF, appy, cholecystitis, CVA, Diverticulitis, Homicidal, Suicidal, threat to staff... and all critical care pts) @ -No - Lab Data Result diagrams: 11/16/24 09:18 11/16/24 09:18 Lab Results 11/16/24 11/16/24 11/16/24 Range/Units 09:18 09:18 09:29 WBC 2.91 L (4.50-10.00) 10*3/uL RBC 5.03 (4.40-5.60) 10*6/uL Hgb 14.9 (13.0-17.0) g/dL Hct 42.2 (39.6-50.0) % MCV 83.9 (80.0-97.0) fL MCH 29.6 (27.0-32.0) pg MCHC 35.3 (32.0-37.0) g/dL Plt Count 122 L (140-440) 10*3/uL MPV 10.6 (9.5-12.2) fL Immature Gran % (Auto) 0.7 % Neutrophils % 68.7 % Lymphocytes % 18.9 % Monocytes % 10.0 % Eosinophils % 0.7 % Basophils % 1.0 % Immature Gran # 0.02 (0.00-0.04) 10*3/uL Neutrophils # 2.00 (1.80-7.70) 10*3/uL Lymphocytes # 0.55 L (0.90-5.00) 10*3/uL Monocytes # 0.29 (0.20-1.00) 10*3/uL Eosinophils # 0.02 L (0.04-0.35) 10*3/uL Basophils # 0.03 (0.00-0.10) 10*3/uL Immature Plt Fraction 5.3 (1.1-6.1) % Sodium 133 L (137-145) mmol/L Potassium 3.7 (3.5-5.1) mmol/L Chloride 96 L (98-107) mmol/L Carbon Dioxide 23 (22-30) mmol/L Anion Gap 14 mmol/L BUN 7 L (9-20) mg/dL Creatinine 0.59 L (0.66-1.25) mg/dL Est GFR (CKD-EPI)AfAm >90 (>60 ml/min/1.73 sqM) Est GFR (CKD-EPI)NonAf >90 (>60 ml/min/1.73 sqM) Glucose 90 (74-99) mg/dL Calcium 7.6 L (8.4-10.2) mg/dL Magnesium 1.7 (1.6-2.3) mg/dL Total Bilirubin 0.7 (0.2-1.3) mg/dL AST 433 H (17-59) U/L ALT 214 H (4-49) U/L Alkaline Phosphatase 136 H (38-126) U/L Total Protein 7.9 (6.3-8.2) g/dL Albumin 4.1 (3.5-5.0) g/dL Influenza Type A (PCR) Not Detected (Not Detectd) Influenza Type B (PCR) Not Detected (Not Detectd) RSV (PCR) Not Detected (Not Detectd) SARS-CoV-2 (PCR) Not Detected (Not Detectd) Disposition Clinical Impression: Vertigo, Thrush Disposition: HOME SELF-CARE Condition: Stable Instructions (If sedation given, give patient instructions): Vertigo (ED) Additional Instructions: Please return to the Emergency Department if symptoms worsen or any other concerns. Prescriptions: Meclizine [Antivert] 25 mg PO TID PRN #15 tab PRN Reason: Vertigo Nystatin 100,000 Unit/ml Susp [Mycostatin Oral Susp] 5 ml PO QID #200 ml Is patient prescribed a controlled substance at d/c from ED?: No Referrals: Tony Kong DO [Primary Care Provider] - 1-2 days Time of Disposition: 11:23
[2024-11-16 09:43] LABS: Basophils # (A) 0.03 10*3/uL (0.00-0.10); Eosinophils # (A) 0.02 10*3/uL (0.04-0.35); Eosinophils % (A) 0.7 %; HCT 42.2 % (39.6-50.0); HGB 14.9 g/dL (13.0-17.0); Immature Platelet Fraction 5.3 % (1.1-6.1); Lymphocytes # (A) 0.55 10*3/uL (0.90-5.00); Lymphocytes % (A) 18.9 %; MCH 29.6 pg (27.0-32.0); MCHC 35.3 g/dL (32.0-37.0); MCV 83.9 fL (80.0-97.0); Mean Platelet Volume 10.6 fL (9.5-12.2); Monocytes # (A) 0.29 10*3/uL (0.20-1.00); Neutrophils % (A) 68.7 %; Platelet Count 122 10*3/uL (140-440); RBC 5.03 10*6/uL (4.40-5.60); RDW 14.6 % (11.5-14.5); WBC 2.91 10*3/uL (4.50-10.00)
[2024-11-16 09:52] LABS: ALT 214 U/L (4-49); AST 433 U/L (17-59); African American GFR (CKD) >90 (>60 ml/min/1.73 sqM); Albumin 4.1 g/dL (3.5-5.0); Alkaline Phosphatase 136 U/L (38-126); Anion Gap 14 mmol/L; Blood Urea Nitrogen 7 mg/dL (9-20); Calcium 7.6 mg/dL (8.4-10.2); Carbon Dioxide 23 mmol/L (22-30); Chloride 96 mmol/L (98-107); Glucose 90 mg/dL (74-99); Magnesium 1.7 mg/dL (1.6-2.3); Non-African American GFR(CKD) >90 (>60 ml/min/1.73 sqM); Potassium 3.7 mmol/L (3.5-5.1); Sodium 133 mmol/L (137-145); Total Bilirubin 0.7 mg/dL (0.2-1.3); Total Protein 7.9 g/dL (6.3-8.2)
--- NOTE | 2024-11-16 10:00 | XR ---
EXAMINATION TYPE: XR chest 2V DATE OF EXAM: 11/16/2024 9:50 AM COMPARISON: None CLINICAL INDICATION: Male, 34 years old with history of sob; H TECHNIQUE: XR chest 2V Frontal and lateral views of the chest. FINDINGS: Lungs/Pleura: There is no evidence of pleural effusion, focal consolidation, or pneumothorax. Pulmonary vascularity: Unremarkable. Heart/mediastinum: Cardiomediastinal silhouette is unremarkable. Musculoskeletal: No acute osseous pathology. Remote left-sided rib fractures. Other findings: None IMPRESSION: No acute cardiopulmonary disease/process. [facility], , 11/16/2024 9:57 AM
[2024-11-16 10:12] LABS: Influenza A Not Detected (Not Detectd); Influenza B Not Detected (Not Detectd); RSV Not Detected (Not Detectd)
[2024-11-16 11:37] VITALS: BP 131/100; PULSE 86; TEMP 97.8
== END 2024-11-16 11:38 | disposition home or self-care (01) ==
LOC: EC 08:49
DX: R42 Dizziness and giddiness (principal); B37.9 Candidiasis, unspecified; Z21 Asymptomatic human immunodeficiency virus [HIV] infection status; Z88.6 Allergy status to analgesic agent
CPT/HCPCS: 99285; 96374; 96361; 36415; 93005; 80053; 83735; 85025; 87636; 71046; J2405